=== PATIENT | male | born 1980 | race Hispanic/Latino ===

== ENCOUNTER 2022-10-30 16:18 | Inpatient (IN) | payer SELFPAY ==
[2022-10-30 16:50] LABS: Absolute Lymphocytes (CBC) 1.7 K/uL (0.7-4.9); Hematocrit 46.1 % (39.6-49.0); Lymphocytes % 21.8 % (15.3-44.8); MCV 94.2 fL (80-100); MPV 8.9 fL (7.6-11.3); Platelets 210 thou/uL (152-406); RBC Red Blood Cell Count 4.89 M/uL (4.33-5.43)
[2022-10-30 17:09] LABS: ALT/SGPT 137 U/L (16-61); AST/SGOT 70 U/L (15-37); Albumin 4.5 g/dL (3.4-5.0); Alkaline Phosphatase 63 U/L (45-117); BUN Blood Urea Nitrogen 13 mg/dL (7-18); Bicarbonate 24 mEq/L (21-32); Bilirubin Direct 0.2 mg/dL (0-0.2); Bilirubin Indirect, Calculated 0.6 mg/dL (0.2-0.8); Bilirubin Total 0.8 mg/dL (0.2-1.0); Glomerular Filtration Rate 112 ml/min (=/>90); Glucose Level 154 mg/dL (74-106); Magnesium 1.7 mg/dL (1.6-2.4); Potassium 3.5 mEq/L (3.5-5.1); Protein, Total 8.2 g/dL (6.4-8.2); Sodium Level 132 mEq/L (136-145); Troponin High Sensitivity 7.5 pg/mL (<58.9)
[2022-10-30] MEDS ORDERED: LABETALOL HCL 100 MG/20 ML ONE (17:09)
[2022-10-30] MEDS ORDERED: LORazepam 2 MG/ML VIAL ONE (17:09)
[2022-10-30] MEDS ORDERED: LABETALOL 20 MG/4ML SYRINGE IV ONE (17:10)
[2022-10-30 17:12] LABS: NT PRO-BNP < 5 pg/mL (<125)
--- NOTE | 2022-10-30 18:13 | EDPHYS ---
Physician Documentation [facility] Name: Hector Painting Age: 42 yrs Sex: Male : 1980 Arrival Date: 10/30/2022 Time: 16:18 Bed 4 Private MD: ED Physician Carlos Alberto Mckeon HPI: 10/30 19:16 This 42 yrs old Male presents to ER via Ambulatory with complaints of High kb Blood Pressure, Blurred Vision. 19:16 Pt reports blurred vision this morning so he checked his bp. States it was 160 kb systolic. 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 Blurred vision resolved. Denies chest pain or shortness of breath. States "I'm worked up right now so my heart is racing." Pt states he has a history of HTN, but does not take anything for it. States he drinks a 12 pack every night, but does not feel like this is related to withdrawal. . Historical: - Allergies: 16:26 No Known Allergies; nj1 - PMHx: 16:26 Hypertensive disorder; nj1 - PSHx: 16:26 None; nj1 - Immunization history:: Client reports having NOT received the Covid vaccine. - Social history:: Smoking status: Patient denies any tobacco usage or history of. ROS: 19:15 Constitutional: Negative for fever, chills, and weight loss. kb 19:15 Eyes: Positive for blurry vision. 19:15 Neuro: Positive for headache. 19:15 All other systems are negative. Exam: 18:00 ECG was reviewed by the Attending Physician. rn 19:15 Constitutional: This is a well developed, well nourished patient who is awake, alert, kb and in no acute distress. Head/Face: Normocephalic, atraumatic. ENT: Moist Mucous membranes Cardiovascular: Regular rate and rhythm with a normal S1 and S2. No gallops, murmurs, or rubs. No pulse deficits. Respiratory: Respirations even and unlabored. No increased work of breathing. Talking in full sentences Abdomen/GI: Soft, non-tender. No distention Skin: Warm, dry with normal turgor. Normal color. MS/ Extremity: Pulses equal, no cyanosis. Neurovascular intact. Full, normal range of motion. Neuro: Awake and alert, GCS 15, oriented to person, place, time, and situation. Moves all extremities. Normal gait. Vital Signs: 16:23 BP 212 / 114; Pulse 121; Resp 18; Temp 99.4(O); Pulse Ox 100% ; Weight 65.77 kg; Height nj1 5 ft. 4 in. ; Pain /; 17:15 BP 195 / 118; Pulse 94; Resp 18; Pulse Ox 99% on R/A; cm10 17:27 BP 178 / 108; Pulse 101; Resp 19; Pulse Ox 100% on R/A; cm10 17:30 BP 167 / 107; Pulse 95; Resp 13; Pulse Ox 100% ; cm10 17:45 BP 177 / 108; Pulse 101; Resp 18; Pulse Ox 99% on R/A; cm10 18:19 BP 159 / 122; Pulse 93; Resp 18; Pulse Ox 100% ; cm10 18:30 BP 150 / 97; Pulse 97; Resp 17; Pulse Ox 99% on R/A; cm10 16:23 Body Mass Index 24.89 (65.77 kg, 162.56 cm) nj1 16:23 Pain Scale: Adult nj1 MDM: 16:21 Patient medically screened. kb 17:00 ED course: Called to room when EKG showed possible STEMI. 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 No diaphoresis. Patient feels anxious. To repeat EKG showed sinus tachycardia without concerning findings that were seen in the first EKG. Troponin and metabolic panels pending to rule out hypertensive emergency.. 19:15 Differential diagnosis: hypertensive crisis, Malignant HTN, [place], abnormal EKG. Data kb reviewed: vital signs, nurses notes. Consideration of Admission/Observation Patient was admitted/placed on observation. Escalation of care including admission/observation considered. Management of patient was discussed with the following: Hospitalist: MARIELENA Trevino accepts pt for admission. Counseling: I had a detailed discussion with the patient and/or guardian regarding the historical points, exam findings, and any diagnostic results supporting the discharge/admit diagnosis, lab results, radiology results, the need for further work-up and treatment in the hospital. 10/30 16:32 Order name: Basic Metabolic Panel; Complete Time: 17:20 kb 10/30 16:32 Order name: CBC with Diff; Complete Time: 17:20 kb 10/30 16:32 Order name: D-Dimer; Complete Time: 17:05 kb 10/30 16:32 Order name: LFT's; Complete Time: 17:20 kb 10/30 16:32 Order name: Magnesium; Complete Time: 17:20 kb 10/30 16:32 Order name: NT PRO-BNP; Complete Time: 17:20 kb 10/30 16:32 Order name: Troponin HS; Complete Time: 17:20 kb 10/30 18:38 Order name: CBC with Automated Diff EDMS 10/30 18:38 Order name: CBC with Automated Diff EDMS 10/30 18:38 Order name: Comprehensive Metabolic Panel EDMS 10/30 18:38 Order name: Comprehensive Metabolic Panel EDMS 10/30 18:38 Order name: Comprehensive Metabolic Panel EDMS 10/30 18:38 Order name: Comprehensive Metabolic Panel EDMS 10/30 18:38 Order name: Magnesium EDMS 10/30 18:38 Order name: Magnesium EDMS 10/30 18:38 Order name: Magnesium EDMS 10/30 18:38 Order name: Magnesium EDMS 10/30 18:38 Order name: Troponin High Sensitivity EDMS 10/30 18:38 Order name: Troponin High Sensitivity; Complete Time: 19:27 EDMS 10/30 18:38 Order name: Troponin High Sensitivity EDMS 10/30 18:38 Order name: Troponin High Sensitivity EDMS 10/30 16:32 Order name: XRAY Chest (1 view); Complete Time: 18:34 kb 10/30 16:32 Order name: EKG; Complete Time: 16:33 kb 10/30 18:38 Order name: Delirium Tremens Prophylaxis-IV Meds EDMS 10/30 18:38 Order name: Clear Liquid EDMS 10/30 16:32 Order name: Cardiac monitoring; Complete Time: 16:45 kb 10/30 16:32 Order name: EKG - Nurse/Tech; Complete Time: 16:54 kb 10/30 16:32 Order name: IV Saline Lock; Complete Time: 16:45 kb 10/30 16:32 Order name: Labs collected and sent; Complete Time: 16:45 kb 10/30 16:32 Order name: O2 Per Protocol; Complete Time: 16:45 kb 10/30 16:32 Order name: O2 Sat Monitoring; Complete Time: 16:45 kb EC:00 Rate is 99 beats/min. Rhythm is regular. QRS [place] is Normal. DC interval is normal. QRS rn interval is normal. QT interval is normal. No Q waves. T waves are Normal. No ST changes noted. Clinical impression: Normal ECG. Interpreted by me. Reviewed by me. Administered Medications: 17:02 Drug: Ativan IVP 1 mg Route: IVP; Site: left antecubital; hb 20:28 Follow up: Response: No adverse reaction rv 17:02 Drug: Labetalol IV 5 mg Route: IV; Rate: calculated rate; Site: left antecubital; hb 20:27 Follow up: Response: No adverse reaction; IV Status: Completed infusion rv 17:17 Drug: Labetalol IV 5 mg Route: IV; Rate: calculated rate; Site: right antecubital; cm10 20:27 Follow up: Response: No adverse reaction; IV Status: Completed infusion rv Disposition Summary: 10/30/22 18:12 Hospitalization Ordered Hospitalization Status: Observation kb Provider: Deanne Bar Location: Telemetry/MedSurg (observation) kb Condition: Stable kb Problem: new kb Symptoms: are unchanged kb Bed/Room Type: Standard Room Assignment: 209(10/30/22 20:08) Diagnosis - Hypertensive urgency kb - Alcohol dependence with withdrawal kb Forms: - Medication Reconciliation Form kb - SBAR form kb - Leadership Thank You Letter kb Addendum: 11/02/2022 23:27 Co-signature as Attending Physician, Carlos Alberto Mckeon MD I reviewed the patient's care r n provided by the Advanced Practice Provider and agree with the diagnosis and treatment plan. Signatures: Dispatcher [employer] Anjelica Hitchcock, COOK BOX FILLER-C COOK BOX FILLER-Ckb Analia Ramirez RN RN mw Nieto, Roman, MD MD rn Baxter, Heather, RN RN Sabra Beauchamp RN RN nj1 Gaye Espinoza RN RN cm10 Godwin Gutierrez RN rv Corrections: (The following items were deleted from the chart) 10/30 19:18 19:16 Pt reports blurred vision this morning so he checked his bp. States it was 160 kb systolic. 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 Blurred vision resolved. Denies chest pain or shortness of breath. States "I'm worked up right now so my heart is racing.". kb 20:08 18:12 kb mw
--- NOTE | 2022-10-30 18:13 | ER ---
Nurse's Notes [facility] Name: Hector Painting Age: 42 yrs Sex: Male : 1980 Arrival Date: 10/30/2022 Time: 16:18 Bed 4 Private MD: Diagnosis: Hypertensive urgency;Alcohol dependence with withdrawal Presentation: 10/30 16:23 Chief complaint: Patient states: Right eye blurred vision, woke up with it. High blood nj1 pressure. Coronavirus screen: Vaccine status: Patient reports being unvaccinated. Ebola Screen: Patient denies travel to an Ebola-affected area in the 21 days before illness onset. Initial Sepsis Screen: Does the patient meet any 2 criteria? HR > 90 bpm. No. Patient's initial sepsis screen is negative. Does the patient have a suspected source of infection? No. Patient's initial sepsis screen is negative. Risk Assessment: Do you want to hurt yourself or someone else? Patient reports no desire to harm self or others. Onset of symptoms was October 30, 2022. 16:23 Method Of Arrival: Amb[facility] 16:23 Acuity: KRYS 2 hb Historical: - Allergies: 16:26 No Known Allergies; nj1 - PMHx: 16:26 Hypertensive disorder; nj1 - PSHx: 16:26 None; nj1 - Immunization history:: Client reports having NOT received the Covid vaccine. - Social history:: Smoking status: Patient denies any tobacco usage or history of. Screenin:35 [facility] ED Fall Risk Assessment (Adult) History of falling in the last 3 months, mb9 including since admission No falls in past 3 months (0 pts) Confusion or Disorientation No (0 pts) Intoxicated or Sedated No (0 pts) Impaired Gait No (0 pts) Mobility Assist Device Used No (0 pt) Altered Elimination No (0 pt) Score/Fall Risk Level 0 - 2 = Low Risk Oriented to surroundings, Maintained a safe environment, Educated pt \T\ family on fall prevention, incl call for assistance when getting out of bed. Abuse screen: Denies threats or abuse. Nutritional screening: No deficits noted. Tuberculosis screening: No symptoms or risk factors identified. Assessment: 16:45 General: Appears in no apparent distress. comfortable, Behavior is anxious. Pain: cm10 Complains of pain in head. Neuro: No deficits noted. Level of Consciousness is awake, alert, obeys commands, Oriented to person, place, time, situation, Reports blurred vision in right eye headache. Cardiovascular: No deficits noted. Capillary refill < 3 seconds Rhythm is sinus tachycardia. Respiratory: No deficits noted. Airway is patent Respiratory effort is even, unlabored, Respiratory pattern is regular, symmetrical. 17:46 Reassessment: Patient and/or family updated on plan of care and expected duration. Pain cm10 level reassessed. Patient is alert, oriented x 3, equal unlabored respirations, skin warm/dry/pink. Patient denies pain at this time. Patient states feeling better. Patient states symptoms have improved. 18:48 Reassessment: No changes from previously documented assessment. Patient and/or family cm10 updated on plan of care and expected duration. Pain level reassessed. Patient is alert, oriented x 3, equal unlabored respirations, skin warm/dry/pink. Patient states symptoms have improved. Vital Signs: 16:23 BP 212 / 114; Pulse 121; Resp 18; Temp 99.4(O); Pulse Ox 100% ; Weight 65.77 kg; Height nj1 5 ft. 4 in. ; Pain 1/10; 17:15 BP 195 / 118; Pulse 94; Resp 18; Pulse Ox 99% on R/A; cm10 17:27 BP 178 / 108; Pulse 101; Resp 19; Pulse Ox 100% on R/A; cm10 17:30 BP 167 / 107; Pulse 95; Resp 13; Pulse Ox 100% ; cm10 17:45 BP 177 / 108; Pulse 101; Resp 18; Pulse Ox 99% on R/A; cm10 18:19 BP 159 / 122; Pulse 93; Resp 18; Pulse Ox 100% ; cm10 18:30 BP 150 / 97; Pulse 97; Resp 17; Pulse Ox 99% on R/A; cm10 16:23 Body Mass Index 24.89 (65.77 kg, 162.56 cm) nj1 16:23 Pain Scale: Adult nj1 ED Course: 16:20 Patient arrived in ED. ts1 16:21 [facility] Sandoval [facility]C [facility] kb 16:21 Carlos Alberto Mckeon MD is Attending Physician. kb 16:26 Triage completed. nj1 16:27 Arm band placed on right wrist. nj1 16:35 Placed in gown. Bed in low position. Call light in reach. Side rails up X 1. Client mb9 placed on continuous cardiac and pulse oximetry monitoring. NIBP monitoring applied. cardiac monitor technician on. 16:37 Gaye Espinoza, RN is Primary Nurse. cm10 16:45 Warm blanket given. cm10 16:46 Basic Metabolic Panel Sent. cm10 16:46 CBC with Diff Sent. cm10 16:46 D-Dimer Sent. cm10 16:46 LFT's Sent. cm10 16:46 Magnesium Sent. cm10 16:46 NT PRO-BNP Sent. cm10 16:46 Troponin HS Sent. cm10 16:46 Initial lab(s) drawn, by me, sent to lab. Inserted saline lock: 18 gauge in left cm10 antecubital area, using aseptic technique. Blood collected. 17:05 Inserted saline lock: 18 gauge in right antecubital area, using aseptic technique. cm10 17:20 XRAY Chest (1 view) In Process Unspecified. EDMS 18:12 Deanne Bar MD is Hospitalizing Provider. kb 19:07 Yves Butt, RN is Primary Nurse. bp 20:26 No provider procedures requiring assistance completed. Patient admitted, IV remains in rv place. 20:27 Provided Education on: CARDIAC CATH. rv Administered Medications: 17:02 Drug: Ativan IVP 1 mg Route: IVP; Site: left antecubital; hb 20:28 Follow up: Response: No adverse reaction rv 17:02 Drug: Labetalol IV 5 mg Route: IV; Rate: calculated rate; Site: left antecubital; hb 20:27 Follow up: Response: No adverse reaction; IV Status: Completed infusion rv 17:17 Drug: Labetalol IV 5 mg Route: IV; Rate: calculated rate; Site: right antecubital; cm10 20:27 Follow up: Response: No adverse reaction; IV Status: Completed infusion rv Medication: 16:35 VIS not applicable for this client. mb9 Outcome: 18:12 Decision to Hospitalize by Provider. kb 20:26 Admitted to Med/surg accompanied by nurse, via wheelchair, room 209, with chart, Report rv called to GO PERRY 20:26 Condition: good 20:26 Instructed on the need for admit. 20:28 Patient left the ED. rv Signatures: Dispatcher [employer] EDMS Anjelica Sandoval FNP-C IS MANAGER-Ckb Kathy Graff, RN RN hb Yves Butt, RN RN bp Godwin Gutierrez, RN RN rv Zulay Brizuela, RN RN mb9 Sabra Beauchamp RN RN nj1 Verónica Stinson PAS PAS ts1 Gaye Espinoza RN RN cm10 Corrections: (The following items were deleted from the chart) 16:56 16:23 Acuity: KRYS 2 nj1 hb 16:56 16:55 Acuity: KRYS 1 hb hb
--- NOTE | 2022-10-30 18:18 | P.HP ---
Certification for Inpatient Patient admitted to: Observation With expected LOS: <2 Midnights Patient will require the following post-hospital care: None Practitioner: I am a practitioner with admitting privileges, knowledge of patient current condition, hospital course, and medical plan of care. Services: Services provided to patient in accordance with Admission requirements found in Title 42 Section 412.3 of the Code of Federal Regulations Patient History Date of Service: 10/30/22 Reason for admission: hypertensive History of Present Illness: 42-year-old male with a past medical history of hypertension, alcohol use presents to the emergency room with hypertensive. Blood pressure on evaluation emergency room 212/115, pulse 121, O2 sat 100% patient denies taking medications for hypertension. No reported chest pain, cough, nausea vomiting, shortness of breath. He reports alcohol use 6 beers daily. He denies history of seizures, denies history of alcohol withdrawals. Reports chills, with hypertensive urgency.. Wants to be evaluated for alcohol withdrawals. Plan to admit for hypertensive urgency, EtOH withdrawal. Lab evaluation CBC unremarkable, hyponatremia 132, glucose 154, transaminitis AST 70, ALT 137, EKG rate is 99 beats/min. Rhythm is regular. QRS [place] is Normal. NV interval is normal. QRS interval is normal. QT interval is normal. No Q waves. T waves are Normal. No ST changes noted. Clinical impression: Normal ECG. Allergies No Known Allergies Allergy (Verified 10/30/22 21:08) Home Medications: NK [No Home Meds] 10/30/22 - Past Medical/Surgical History Has patient received pneumonia vaccine in the past: No -: Hypertension Past Surgical History: Patient denies surgical history - Social History Alcohol use: Yes CD- Drugs: No Caffeine use: Yes Place of Residence: Home Review of Systems 10-point ROS is otherwise unremarkable Physical Examination - Physical Exam General: Alert, In no apparent distress, Oriented x3 HEENT: Atraumatic, Normocephalic, PERRLA Neck: Supple, 2+ carotid pulse no bruit, JVD not distended Respiratory: Clear to auscultation bilaterally, Normal air movement Cardiovascular: No edema, Normal pulses, Regular rate/rhythm, Normal S1 S2 Capillary refill: <2 Seconds Gastrointestinal: Normal bowel sounds, Hypoactive, Non-distended Musculoskeletal: No clubbing, No swelling Integumentary: No rashes, No breakdown Neurological: Normal gait, Normal speech, Normal strength at 5/5 x4 extr, Normal tone, Sensation intact - Studies Laboratory Data (last 24 hrs) 10/30/22 10/30/22 16:45 16:43 WBC 7.80 Hgb 15.7 Hct 46.1 Plt Count 210 Sodium 132 L Potassium 3.5 BUN 13 Creatinine 0.87 Glucose 154 H Magnesium 1.7 Total Bilirubin 0.8 AST 70 H ALT 137 H Alkaline Phosphatase 63 Assessment and Plan - Plan Assessment plan Hypertensive urgency acute As needed antihypertensives, start metoprolol p.o. twice daily daily, clonidine as needed educated on medication compliance EKG rate is 99 beats/min. Rhythm is regular. QRS [place] is Normal. NV interval is normal. QRS interval is normal. QT interval is normal. No Q waves. T waves are Normal. No ST changes noted. Clinical impression: Normal ECG. Transaminitis transaminitis AST 70, ALT 137, Hepatitis panel Hyponatremia hyponatremia 132 Gentle IV fluids Alcohol use CIWA protocol, educated on alcohol sensation Folic acid, Librium, Ativan, multivitamin DVT prophylaxis Lovenox Full code Diet advance as tolerated Discharge Plan: Home Plan to discharge in: 24 Hours - Advance Directives Does patient have a Living Will: No Does patient have a Durable POA for Healthcare: No - Code Status/Comfort Care Code Status: Full Code Physician Review: Patient Assessed, Agree with Above Assessment and Plan Critical Care: No Time Spent Managing Pts Care (In Minutes): 50
[2022-10-30] MEDS ORDERED: ACETAMINOPHEN 500 MG TAB PO PRN (18:25)
[2022-10-30] MEDS ORDERED: FLUMAZENIL 0.1 MG/ML (5 mL VIAL) IV PRN (18:25)
[2022-10-30] MEDS ORDERED: LORazepam 2 MG/ML VIAL IV PRN ×3 (18:25)
[2022-10-30] MEDS ORDERED: METOPROLOL TARTRATE 5 MG/5 ML INJ IV PRN (18:25)
[2022-10-30] MEDS ORDERED: ONDANSETRON 4 MG/2 ML VIAL IV PRN (18:25)
--- NOTE | 2022-10-30 18:33 | RAD REPORT ---
EXAM DESCRIPTION: Jamaal Single View10/30/2022 5:19 pm CLINICAL HISTORY: PALPITATIONS COMPARISON: No comparisons TECHNIQUE: Portable AP view of the chest. FINDINGS: The lungs are clear. No pneumothorax or effusion. The cardiomediastinal contours are unre markable. IMPRESSION: No acute cardiopulmonary process.
[2022-10-30 20:44] VITALS: BMI 22.7
[2022-10-30] MEDS ORDERED: cloNIDine HCL 0.1 MG TAB PO PRN (20:45)
[2022-10-30] MEDS: METOPROLOL TAR 25 MG TAB PO SCH (21:02)
[2022-10-30] MEDS: NA CHLORIDE 0.9% 1,000 ML IV SCH (21:03)
[2022-10-30 21:26] VITALS: O2SAT 99
[2022-10-31 03:57] LABS: Absolute Lymphocytes (CBC) 1.8 K/uL (0.7-4.9); Hematocrit 43.3 % (39.6-49.0); Lymphocytes % 31.8 % (15.3-44.8); MCV 93.7 fL (80-100); MPV 9.1 fL (7.6-11.3); Platelets 183 thou/uL (152-406); RBC Red Blood Cell Count 4.62 M/uL (4.33-5.43)
[2022-10-31 04:10] LABS: Albumin 3.8 g/dL (3.4-5.0); Bilirubin Total 0.6 mg/dL (0.2-1.0); Potassium 3.8 mEq/L (3.5-5.1)
[2022-10-31 04:56] VITALS: BP 142/94; TEMP 97.8
[2022-10-31] MEDS: METOPROLOL TAR 25 MG TAB PO SCH (06:21)
[2022-10-31] MEDS: chlordiazePOXIDE HCl 25 MG CAP PO SCH ×2 (06:21)
[2022-10-31] MEDS: NA CHLORIDE 0.9% 1,000 ML IV SCH (08:20)
--- NOTE | 2022-10-31 08:48 | P.DS ---
Admission Date: 10/30/22 Discharge Date: 10/31/22 Disposition: ROUTINE DISCHARGE Discharge Condition: GOOD Reason for Admission: Hypertensive Urgency Hospital Course: DIAGNOSES: # Hypertensive Urgency # Possible Mild Alcohol Withdrawal Syndrome - improved # Alcohol Use Disorder # Elevated LFTs HOSPITAL COURSE: Mr. Hector Painting is a 42 year old male with a past medical history significant for hypertension and alcohol use disorder who was admitted to the [facility] on 10/30/2022 for hypertension. He was admitted to the Medicine service. Upon further evaluation, his blood pressure was as high as 212/114. His laboratory studies were notable for mildly elevated LFTs. His chest x-ray revealed, "no acute cardiopulmonary process." He was admitted for hypertensive urgency with concern for a mild alcohol withdrawal syndrome. He was started on chlordiazepoxide and anti-hypertensives, with improvement in his blood pressure. This morning, he stated that he felt significantly better and would like to be discharged home. He mentions that he has had an extensive history of hypertension, with average home SBP of 160 mmHg; however, he has not tried taking any medication at home for his blood pressure. He states that he has not had a blood pressure as high as yesterday before, but he attributes this to the 2 Monster energy drinks that he consumed prior to presentation. In regards to his alcohol use, he was provided extensive alcohol cessation counseling and he is interested in quitting. He states that he will be looking into outpatient alcohol rehab. I encouraged him to contact us if he needs any help or additional resources. In regard to his elevated LFTs, he was advised to follow-up with his PCP for further evaluation. He verbalized understanding and agreed to make this follow-up appointment. On 10/31/2022, he was seen on morning rounds and deemed medically stable for discharge. He was discharged with instructions to schedule follow-up ap pointments with his PCP. He was provided prescriptions for hydrochlorothiazide and chlordiazepoxide. He was given the opportunity to ask questions and reported no further questions. Furthermore, all questions were answered to the best of my ability. Of note, I was unable to electronically prescribe chlordiazepoxide due to technical issues with my [facility]. My colleague, Dr. Bar, was able to provide this prescription for Mr. Painting. Today, I personally spent 25 minutes on his case, of which greater than 50% of the time was spent in patient education, counseling, and coordination of care as described above. Vital Signs/Physical Exam: Temp Pulse Resp BP Pulse Ox 97.8 F 71 18 142/94 H 98 10/31/22 04:00 10/31/22 06:21 10/31/22 04:00 10/31/22 06:21 10/31/22 04:00 General: Alert, In no apparent distress, Oriented x3 HEENT: Atraumatic, Mucous membr. moist/pink, Sclerae nonicteric Neck: JVD not distended Respiratory: Clear to auscultation bilaterally, Normal air movement Cardiovascular: No edema, Regular rate/rhythm, Normal S1 S2, No gallops, No rubs, No murmurs Gastrointestinal: Normal bowel sounds, Soft and benign, Non-distended, No tenderness, No rebound, No guarding Musculoskeletal: No clubbing Integumentary: No rashes Neurological: Normal gait, Normal speech, Normal strength at 5/5 x4 extr, Cranial nerves 3-12 intact, Normal affect Laboratory Data at Discharge: WBC 5.70 thou/uL (4.3-10.9) 10/31/22 03:01 Hgb 15.0 g/dL (13.6-17.9) 10/31/22 03:01 Hct 43.3 % (39.6-49.0) 10/31/22 03:01 Plt Count 183 thou/uL (152-406) 10/31/22 03:01 Sodium 137 mEq/L (136-145) D 10/31/22 03:01 Potassium 3.8 mEq/L (3.5-5.1) 10/31/22 03:01 BUN 19 mg/dL (7-18) H 10/31/22 03:01 Creatinine 0.78 mg/dL (0.70-1.30) 10/31/22 03:01 Glucose 95 mg/dL (74-106) 10/31/22 03:01 Magnesium 2.0 mg/dL (1.6-2.4) 10/31/22 03:01 Total Bilirubin 0.6 mg/dL (0.2-1.0) 10/31/22 03:01 AST 46 U/L (15-37) H 10/31/22 03:01 ALT 107 U/L (16-61) H 10/31/22 03:01 Alkaline Phosphatase 57 U/L (45-117) 10/31/22 03:01 Triglycerides Cancelled 10/31/22 06:00 Cholesterol Cancelled 10/31/22 06:00 HDL Cholesterol Cancelled 10/31/22 06:00 Cholesterol/HDL Ratio Cancelled 10/31/22 06:00 Home Medications: Thiamine HCl [Vitamin B-1*] 100 mg PO DAILY 10/31/22 chlordiazePOXIDE HCl [Librium*] 25 mg PO TID #10 cap 10/31/22 hydroCHLOROthiazide [Hydrochlorothiazide*] 12.5 mg PO DAILY #30 cap 10/31/22 New Medications: hydroCHLOROthiazide [Hydrochlorothiazide*] 12.5 mg PO DAILY #30 cap chlordiazePOXIDE HCl [Librium*] 25 mg PO TID #10 cap Physician Discharge Instructions: 1. Please call and schedule a follow-up appointment with your PCP in 3-5 days - Please take your blood pressure two times per day and maintain a journal. Please bring this journal to your doctor's appointment for medication adjustments/refills - As we discussed, your liver enzymes were elevated. Please follow-up with your PCP for further evaluation. - As we discussed, please do not drive or operate heavy machinery while taking Librium (chlordiazepoxide). Diet: AHA Activity: Ad ev Followup: Unknown,U [Primary Care Provider] - Time spent managing pt's care (in minutes): 25
[2022-10-31] MEDS ORDERED: FOLIC ACID 1 MG TABLET PO SCH (09:00)
[2022-10-31] MEDS ORDERED: MULTIVITAMIN TAB PO SCH (09:00)
[2022-10-31] MEDS ORDERED: hydroCHLOROthiazide 12.5 MG CAP PO SCH (09:00)
[2022-10-31] MEDS ORDERED: THIAMINE HCL 100 MG TABLET PO SCH (09:00)
[2022-10-31] MEDS ORDERED: ENOXAPARIN 40 MG/0.4 ML SQ SCH (09:00)
[2022-10-31] MEDS ORDERED: POTASSIUM CL SA 10 MEQ TAB PO ONE (09:26)
--- NOTE | 2022-10-31 17:06 | EKG ---
Test Date: 2022-10-30 Test Time: 16:51:23 Screen Printing Machine Operator: BRENDA MEASUREMENT RESULTS: Intervals: Rate: 121 CT: 132 QRSD: 144 QT: 346 QTc: 491 Padroni: P: 47 CT: 132 QRS: 23 T: 37 INTERPRETIVE STATEMENTS: Sinus tachycardia Nonspecific intraventricular block ST elevation, consider inferolateral injury or acute infarct ACUTE AK Abnormal ECG No previous ECG available for comparison Electronically Signed On 10-31-22 17:05:05 CDT by Amadou Urrutia
--- NOTE | 2022-10-31 17:06 | EKG ---
Test Date: 2022-10-30 Test Time: 17:39:55 Vehicle And Equipment Cleaner: BRENDA MEASUREMENT RESULTS: Intervals: Rate: 99 NC: 140 QRSD: 98 QT: 340 QTc: 436 [place]: P: 51 NC: 140 QRS: 1 T: 42 INTERPRETIVE STATEMENTS: Normal sinus rhythm Normal ECG Compared to ECG 10/30/2022 16:57:38 Sinus tachycardia no longer present Electronically Signed On 10-31-22 17:04:51 CDT by Amadou Urrutia
--- NOTE | 2022-10-31 17:06 | EKG ---
Test Date: 2022-10-30 Test Time: 16:55:05 Environmental Protection Economist: BRENDA MEASUREMENT RESULTS: Intervals: Rate: 140 MS: 128 QRSD: 94 QT: 270 QTc: 412 [place]: P: 34 MS: 128 QRS: 26 T: 35 INTERPRETIVE STATEMENTS: Sinus tachycardia Otherwise normal ECG Compared to ECG 10/30/2022 16:51:23 ST (T wave) deviation no longer present Myocardial infarct finding no longer present Electronically Signed On 10-31-22 17:04:56 CDT by Amadou Urrutia
--- NOTE | 2022-10-31 17:06 | EKG ---
Test Date: 2022-10-30 Test Time: 16:57:38 Insurance Producer: BRENDA MEASUREMENT RESULTS: Intervals: Rate: 131 NC: 132 QRSD: 100 QT: 314 QTc: 463 [place]: P: 50 NC: 132 QRS: 25 T: 34 INTERPRETIVE STATEMENTS: Sinus tachycardia Otherwise normal ECG Compared to ECG 10/30/2022 16:55:05 No significant changes Electronically Signed On 10-31-22 17:04:53 CDT by Amadou Urrutia
== END 2022-10-31 11:19 | disposition home or self-care (01) | DRG 897 ==
LOC: ER 16:18 → ERHOLD 18:34 → 2ND 20:22
PROVIDERS: ADMIT Hospitalist; ATTEND Internal Medicine
DX: F10.239 Alcohol dependence with withdrawal, unspecified (principal); E87.1 Hypo-osmolality and hyponatremia; I16.0 Hypertensive urgency; I10 Essential (primary) hypertension; R74.01 Elevation of levels of liver transaminase levels; R79.89 Other specified abnormal findings of blood chemistry; Z71.41 Alcohol abuse counseling and surveillance of alcoholic; Z28.310 Unvaccinated for COVID-19
CPT/HCPCS: 36415; 71045; 80048; 80053; 80061; 80076; 83735; 83880; 84484; 85025; 85379; 93005; 99285; J1650; J7030